=== PATIENT | female | born 1960 | race African-American/Black ===

== ENCOUNTER 2017-02-22 05:11 | Day surgery (SDC) | payer OTHER ==
[~2017-02-22] VITALS: Ht 160 cm; Wt 103.4 kg
--- NOTE | ~2017-02-22 | O ---
[facility] [place] [address] OPERATIVE REPORT Name: CARLOS A WALKER Room #: DEP [facility]..#: [id number] Admission: 02/22/17 Attend Phys: Reid Hdz DPM Discharge: 02/22/17 Date of : 64 Report #: [id number] THIS REPORT FOR: //name// CC: Reid Cheung DATE OF SERVICE: 02/22/2017 SURGEON: Reid Hdz DPM. PREOPERATIVE DIAGNOSES: 1. Metatarsalgia, fifth metatarsal, bilateral feet. 2. Contracted right hallux and exostosis, right hallux. POSTOPERATIVE DIAGNOSES: 1. Metatarsalgia, fifth metatarsal, bilateral feet. 2. Contracted right hallux and exostosis, right hallux. PROCEDURE: 1. Fifth metatarsal head resection, bilateral feet. 2. Exostectomy of hallux, right foot and extensor lengthening to the hallux, right foot. ANESTHESIA: IV sedation, local nerve block. HEMOSTASIS: Provided with a well-padded ankle tourniquet to the bilateral ankles. ESTIMATED BLOOD LOSS: Minimal. COMPLICATIONS: There were no complications during the procedure or the anesthesia. Following is the preoperative course: This patient presented to the office on several occasions for debridement of painful calluses on both feet and padding of her insoles in both shoe gear. This did give her temporary relief, though she continued to have a quality of life and disabling pain with the calluses on the plantar aspect of the fifth metatarsal heads bilaterally and the right hallux, right foot. Surgery was presented to her as an option and due to her significant quality of life decreased due to these calluses, she opted for a surgical correction. The patient signed a preoperative consent form, admitting to understanding of both the procedure and the risks and complications. DESCRIPTION OF PROCEDURE: The patient was wheeled the operating room in the usual supine position, transferred to the operating table, given IV sedation. Once the IV sedation was found to be adequate, local nerve block was given to [address] [address] OPERATIVE REPORT Name: CARLOS A WALKER Room #: DEP [facility]..#: [id number] Admission: 02/22/17 Attend Phys: Reid Hdz DPM Discharge: 02/22/17 Date of : 64 Report #: [id number] both feet. Both feet were then prepped and draped in the usual sterile manner. Upon reentering the operating room, anesthesia was checked at both feet and found to be adequate. Esmarch, tourniquet was used to exsanguinate the blood from the left foot. The ankle tourniquet elevated to 250 mmHg. Attention was then directed to the dorsal aspect of the left foot over the fifth metatarsophalangeal joint where linear longitudinal incision was made. This was deepened sharply and bluntly, taking care to cauterize and retract all bleeders. The fifth metatarsal head was then realized and a portion of the fifth metatarsal head back to the neck was removed and upon plantar palpation with the presenting callus was found to be free of any bony prominence that might cause recurrence of this callus. The wound was copiously flushed with sterile saline. The tourniquet was released and hemostasis maintained using the cautery unit. Subcuticular structures were reopposed using 4-0 Vicryl suture and subcutaneous structures reopposed in the same manner with the same 4-0 Vicryl suture. The skin edges were reopposed using 4-0 nylon suture in a running continuous fashion. Sterile dressing was placed on the left foot. Cap refill returned to all digits upon release of the tourniquet to the left foot. The exact same procedure without any additions or deletions was performed on the right fifth metatarsal head. Attention was then directed to the right hallux where a transverse incision was made over the IPJ dorsally of the hallux. This was deepened sharply and bluntly, taking care to cauterize and retract all bleeders. Following release of the extensor tendon to the hallux dorsally of the long extensor tendon allowed release of the dorsal contracture at the IPJ and put the hallux in a much more corrected fashion. Attention was then directed to the plantar medial aspect of the proximal phalangeal condyle where this was removed with a sagittal saw and upon external palpation of the existing callus found to be free of any pressure from the bony prominence of the proximal phalangeal condyle. The extensor longus tendon to the hallux was then resutured in a lengthened position, which continued to release the contracture on the right great toe. Cap refill was immediately returned upon release of the tourniquet and hemostasis maintained using the cautery unit. Sterile dressing was applied to the right foot after closure with a 4-0 Vicryl suture to the subcuticular tissues and 4-0 nylon suture in a horizontal mattress and simple interrupted fashion to the dorsal incision of the hallux. Cap refill immediately returned as mentioned and the patient tolerated the procedure and the anesthesia and left the operating room in stable condition. She will follow up in about 3 days for postoperative wound management, was given Lortab 7.5 mg for pain management to be used q. 4-6h. p.r.n. for pain and also Keflex 500 mg b.i.d. for wound prophylaxis due to her diabetic condition and other preexisting medical conditions. By: [id number] Reid Hdz, LIANA /nt
--- NOTE | ~2017-02-22 | EKG ---
[place] [address] [facility] [place] [address] ELECTROCARDIOGRAM REPORT Name: CARLOS A WALKER Room #: DEP [facility].Cruz#: [id number] Admission: 02/22/17 Attend Phys: Reid Hdz DPM Discharge: 02/22/17 Date of : 64 Report #: [id number] THIS REPORT FOR: //name// [facility] Test Date: 2017-02-22 Test Time: 06:48:10 Pat Name: CARLOS A WALKER Department: Room: 150 8 Gender: F Material Hauler: SAMANTA : 1960 Requested By: Silvia Meehan Order Number: [id number] MD: Jurgen Vargas Measurements Intervals [place] Rate: 69 P: 26 VT: 173 QRS: 1 QRSD: 151 T: 146 QT: 473 QTc: 507 Interpretive Statements Sinus rhythm Left bundle branch block Compared to ECG 06/29/1998 06:45:00 Left bundle-branch block now present Electronically Signed On 02-23-2017 10:03:22 CDT by Jurgen Vargas [email or web address] <ELECTRONICALLY SIGNED> By: Jurgen Vargas MD, [facility] 02/23/17 1003 Jurgen Vargas MD, [facility] /EPI
[~2017-02-22 05:11] MED LIST: ASPIR 8181 MG PO; HYDRALAZINE 5050 MG PO; ISOSORBIDE MON120 MG PO; LANTUS100 UNIT/M SUBQ; LASIX 40 MG TAB40 M2 PO; LEXAPRO20 MG PO; LIPITOR80 MG PO; LOSARTAN POTAS100 MG PO; LYRICA 50 MG50 MG PO; NOVOLOG100 UNIT/1 SUBQ; OMEPRAZOLE40 MG PO; SENSIPAR60 MG PO; TOPROL XL100 MG PO
[2017-02-22 06:47] LABS: HEMATOCRIT 33.1 % (37.0-47.0); HEMOGLOBIN 10.6 gm/dL (12.0-15.0); MCH 29.1 pg (26.0-34.0); MCHC 32.1 g/dL (28.0-37.0); MCV 90.6 fL (80.0-100.0); RBC 3.65 mil/uL (4.20-5.00); RDW 14.4 % (10.5-14.5); WBC 10.5 thou/uL (4.0-11.0)
[2017-02-22 06:55] LABS: CREATININE 5.7 mg/dL (0.6-1.0); POTASSIUM 4.9 mmol/L (3.5-5.1)
[2017-02-22 07:01] LABS: ALBUMIN 3.4 g/dL (3.4-5.0); TOTAL BILIRUBIN 0.4 mg/dL (<0.1-1.0); TOTAL PROTEIN 8.1 g/dL (6.4-8.2)
[2017-02-22 07:20] VITALS: BP 148/77
== END 2017-02-22 10:35 | disposition home or self-care (01) ==
LOC: TBA 05:11 → OR 05:11 → TBA 05:12 → OR 10:35
PROVIDERS: Student in an Organized Health Care Education/Training Program
DX: M77.41 Metatarsalgia, right foot (principal); M77.42 Metatarsalgia, left foot; M20.11 Hallux valgus (acquired), right foot; K21.9 Gastro-esophageal reflux disease without esophagitis; Z99.2 Dependence on renal dialysis; Z87.891 Personal history of nicotine dependence; F32.9 Major depressive disorder, single episode, unspecified; J45.909 Unspecified asthma, uncomplicated; I10 Essential (primary) hypertension; E78.00 Pure hypercholesterolemia, unspecified; D64.9 Anemia, unspecified; N18.6 End stage renal disease; I12.0 Hypertensive chronic kidney disease with stage 5 chronic kidney disease or end stage renal disease; E11.22 Type 2 diabetes mellitus with diabetic chronic kidney disease; E11.42 Type 2 diabetes mellitus with diabetic polyneuropathy
CPT/HCPCS: 50010; 50101; 50386; 53010; 56526; 56871; 57092; 62110; 62850; 70005